=== PATIENT | male | born 1995 | race Caucasian/White ===

== ENCOUNTER 2024-01-06 14:45 | Inpatient (IN) | payer OTHER, MEDICAID ==
[~2024-01-06] VITALS: Ht 149.9 cm; Wt 87.2 kg
[2024-01-06] MEDS ORDERED: IPRATROPIUM/ALBUTEROL SULFATE 3 ML AMPUL.NEB (DUONEB) ONE (14:56)
[2024-01-06] MEDS: IPRATROPIUM/ALBUTEROL SULFATE 3 ML AMPUL.NEB (DUONEB) INH ONE (15:10)
[2024-01-06 15:15] VITALS: BP_SYST 152; PULSE 112; RESP 25; TEMP 99.3; O2SAT 95
[2024-01-06 15:27] LABS: BASOPHILS # (AUTO) 0.1 K/uL (0.0-0.2); BASOPHILS % (AUTO) 0.7 % (0.0-2.0); EOSINOPHILS % (AUTO) 0.2 % (0.0-4.0); HEMOGLOBIN 14.2 g/dL (14.0-18.0); LYMPHOCYTES # (AUTO) 0.8 K/uL (1.0-5.5); LYMPHOCYTES % (AUTO) 8.7 % (20.5-51.5); MEAN CORPUSCULAR HEMOGLOBIN 32 pg (27-31); MEAN CORPUSCULAR HGB CONC 35 % (32-36); MEAN CORPUSCULAR VOLUME 92 fL (79.0-98.0); MONOCYTES # (AUTO) 0.6 K/uL (0.0-1.0); MONOCYTES % (AUTO) 6.3 % (1.7-9.3); NEUTROPHILS # (AUTO) 7.4 K/uL (1.8-7.7); NEUTROPHILS % (AUTO) 84.1 % (40.0-70.0); PLATELET COUNT (AUTO) 185 K/uL (130-430); RED BLOOD CELL COUNT(AUTO) 4.47 MIL/uL (4.2-6.2); RED CELL DISTRIBUTION WIDTH 14.3 % (9.0-15.0); WHITE BLOOD COUNT (AUTO) 8.8 K/uL (4.8-10.8)
[2024-01-06] MEDS ORDERED: PIPERACILLIN/TAZOBACTAM 3.375 GM/VIAL (ZOSYN) IV ONE (15:37)
[2024-01-06] MEDS: PIPERACILLIN/TAZO 3.375 GM in D5W 50 ML IV ONE (15:41)
[2024-01-06] MEDS: methylPREDNISolone SOD SUCC/PF 62.5 MG/ML VIAL IVP ONE (15:41)
[2024-01-06 16:02] LABS: PROTHROMBIN TIME 10.8 SECS (9.5-12.5)
[2024-01-06 16:06] LABS: ALANINE AMINOTRANSFERASE 48 U/L (12-78); ALBUMIN 3.4 g/dL (3.4-4.8); ANION GAP 6 (5-15); ASPARTATE AMINOTRANSFERASE 21 U/L (10-37); BILIRUBIN,DIRECT 0.1 mg/dL (0.0-0.3); CARBON DIOXIDE 29 mmol/L (23-29); CHLORIDE 102 mmol/L (98-107); CREATININE 1.05 mg/dL (0.55-1.30); GFR AFRICAN AMERICAN 107 mL/min (>90); GLUCOSE 180 mg/dL (74-106); POTASSIUM 4.5 mmol/L (3.5-5.1); SODIUM SERUM 137 mmol/L (136-145); TOTAL BILIRUBIN 0.4 mg/dL (0.0-1.0); TOTAL PROTEIN, SERUM 7.4 g/dL (6.4-8.3); UREA NITROGEN, BLOOD 16 mg/dL (8-21)
[2024-01-06 16:10] LABS: GFR NON AFRICAN-AMERICAN 88 mL/min (>90)
[2024-01-06] MEDS ORDERED: AZITHROMYCIN 500 MG/VIAL (ZITHROMAX) IV ONE (17:13)
[2024-01-06] MEDS: AZITHROMYCIN 500 MG in NS 250 ML IV ONE (17:41)
[2024-01-06] MEDS ORDERED: ACETAMINOPHEN 325 MG TABLET PO ONE (17:45)
[2024-01-06] MEDS ORDERED: INSULIN REGULAR, HUMAN 100 UNITS/ML, 3 ML VIAL (humuLIN R) SUBCUT SCH (17:45)
[2024-01-06] MEDS ORDERED: HYDROcodone/ACETAMIN 5-325 MG TAB (NORCO/ VICODIN) PO PRN (17:45)
[2024-01-06] MEDS ORDERED: NACL 0.9% 2,000 ML IV ONE (17:45)
[2024-01-06] MEDS ORDERED: MORPHINE 2 MG/ML INJ. SYRINGE IVP PRN (17:45)
[2024-01-06] MEDS ORDERED: METF-863 PO (17:52)
[2024-01-06] MEDS ORDERED: NITSL SL (17:52)
[2024-01-06] MEDS ORDERED: LEVO100T9 PO (17:52)
[2024-01-06] MEDS ORDERED: ARIP15TA43 PO (17:52)
[2024-01-06] MEDS ORDERED: IBUP-1968 PO (17:52)
[2024-01-06] MEDS ORDERED: FLUO-408 PO (17:52)
[2024-01-06] MEDS ORDERED: PROP10TA10 PO (17:52)
[2024-01-06] MEDS ORDERED: ATOM60CA4 PO (17:52)
[2024-01-06] MEDS ORDERED: ATOR10TA68 PO (17:52)
[2024-01-06] MEDS ORDERED: RISP1TAB PO (17:54)
[2024-01-06] MEDS ORDERED: ACET325T53 PO (17:54)
[2024-01-06] MEDS ORDERED: ONDANSETRON HCL 4 MG/2 ML VIAL IVP PRN (18:00)
[2024-01-06] MEDS ORDERED: [UNRECOGNIZED DRUG - CODE] TP (18:00)
[2024-01-06 18:04] LABS: INFLUENZA TYPE A Negative (NEGATIVE); INFLUENZA TYPE B NEGATIVE (NEGATIVE)
[2024-01-06 18:09] LABS: COVID19 ANTIGEN SOFIA FIA NEGATIVE (NEGATIVE)
[2024-01-06] MEDS ORDERED: ACETAMINOPHEN 325 MG TABLET PO PRN ×2 (18:30)
[2024-01-06 18:44] LABS: BILIRUBIN,URINE NEGATIVE (NEGATIVE); BLOOD, URINE NEGATIVE (NEGATIVE); CLARITY/URINE CLEAR (CLEAR); COLOR,URINE YELLOW (YELLOW); GLUCOSE,URINE NEGATIVE (NEGATIVE); KETONES,URINE NEGATIVE (NEGATIVE); LEUKOCYTE ESTERASE ,URINE NEGATIVE (NEGATIVE); NITRITE, URINE NEGATIVE (NEGATIVE); PROTEIN URINE NEGATIVE (NEGATIVE); UROBILINOGEN,URINE 0.2 (0.2-1.0)
[2024-01-06] MEDS ORDERED: NITROGLYCERIN 0.4 MG TAB.SUBL SL PRN (19:00)
[2024-01-06 23:00] VITALS: O2SAT 96
[2024-01-06] MEDS: KETOROLAC TROMETHAMINE 30 MG VIAL IVP ONE (23:09)
[2024-01-06] MEDS: ARIPiprazole 5 MG TAB PO SCH (23:50)
[2024-01-06] MEDS: ATORVASTATIN 10 MG TABLET PO SCH (23:52)
[2024-01-06] MEDS: PROPRANOLOL HCL 10 MG TABLET (INDERAL) PO SCH (23:57)
[2024-01-07] VITALS (10 sets, daily range): BP systolic 93–124; PULSE 89–92; RESP 16–20; TEMP 97.3–99.1; O2SAT 93–98
[2024-01-07] MEDS: IPRATROPIUM/ALBUTEROL SULFATE 3 ML AMPUL.NEB (DUONEB) INH SCH (06:03)
[2024-01-07] MEDS: LEVOTHYROXINE SODIUM 0.1 MG TABLET PO SCH (07:00)
[2024-01-07] MEDS ORDERED: INSULIN NPH/REGULAR 70-30, 100 UNITS/ML, 3 ML VIAL ONE (08:50)
[2024-01-07] MEDS ORDERED: cefTRIAXone 1 GM VIAL IV ONE (09:00)
[2024-01-07] MEDS: INSULIN REGULAR, HUMAN 100 UNITS/ML, 3 ML VIAL (humuLIN R) SUBCUT PRN (09:03)
[2024-01-07 09:11] LABS: BASOPHILS % (AUTO) 0.2 % (0.0-2.0); HEMATOCRIT 40.9 % (36-54); HEMOGLOBIN 13.6 g/dL (14.0-18.0); LYMPHOCYTES # (AUTO) 0.3 K/uL (1.0-5.5); LYMPHOCYTES % (AUTO) 2.9 % (20.5-51.5); MEAN CORPUSCULAR HEMOGLOBIN 31 pg (27-31); MEAN CORPUSCULAR HGB CONC 33 % (32-36); MEAN CORPUSCULAR VOLUME 93 fL (79.0-98.0); MONOCYTES # (AUTO) 0.1 K/uL (0.0-1.0); MONOCYTES % (AUTO) 0.6 % (1.7-9.3); NEUTROPHILS # (AUTO) 11.6 K/uL (1.8-7.7); NEUTROPHILS % (AUTO) 96.3 % (40.0-70.0); PLATELET COUNT (AUTO) 181 K/uL (130-430); RED BLOOD CELL COUNT(AUTO) 4.38 MIL/uL (4.2-6.2); RED CELL DISTRIBUTION WIDTH 14.1 % (9.0-15.0); WHITE BLOOD COUNT (AUTO) 12.1 K/uL (4.8-10.8)
[2024-01-07 09:34] LABS: ALBUMIN 2.9 g/dL (3.4-4.8); CALCIUM 9.1 mg/dL (8.4-11.0); CREATININE 1.38 mg/dL (0.55-1.30); POTASSIUM 4.6 mmol/L (3.5-5.1); TOTAL BILIRUBIN 0.3 mg/dL (0.0-1.0); TOTAL PROTEIN, SERUM 7.8 g/dL (6.4-8.3)
[2024-01-07] MEDS: risperiDONE 1 MG TABLET (RisperDAL) PO SCH (10:29)
[2024-01-07] MEDS: METHYLPREDNISOLONE SOD SUCC 40 MG/ML VIAL IVP SCH (10:31)
[2024-01-07] MEDS: FLUoxetine HCL 20 MG CAPSULE (PROzac) PO SCH (10:35)
[2024-01-07] MEDS: cefTRIAXone 1 GM in D5W 50 ML IV SCH (10:40)
[2024-01-07] MEDS: AZITHROMYCIN 500 MG in NS 250 ML IV SCH (17:52)
[2024-01-08] VITALS (10 sets, daily range): BP systolic 101–135; PULSE 75–103; RESP 16–19; TEMP 97.8–98.6; O2SAT 94–98
[2024-01-08] MEDS: INSULIN GLARGINE 100 UNITS/ML, 10 ML VIAL SUBCUT SCH ×2 (09:23→20:17)
[2024-01-09] VITALS: BP_SYST 107; PULSE 70; RESP 20; TEMP 97.3; O2SAT 96
[2024-01-09 07:30] VITALS: O2SAT 98
[2024-01-09 08:00] VITALS: BP_SYST 123; PULSE 99; RESP 20; TEMP 98.1; O2SAT 97
[2024-01-09] MEDS ORDERED: INSU100V9 SUBCUT (09:18)
[2024-01-09] MEDS ORDERED: AUG875 PO (09:18)
[2024-01-09] MEDS ORDERED: INSU100V7 SUBCUT (09:18)
[2024-01-09 12:12] VITALS: BP_SYST 109; PULSE 97; RESP 16; TEMP 97.9; O2SAT 96
[2024-01-09 12:13] VITALS: BP_SYST 112; PULSE 99; RESP 18; TEMP 97.8; O2SAT 98
[2024-01-09] MEDS ORDERED: AMOXICILLIN/POTASSIUM CLAV 875 MG TABLET PO SCH (21:00)
== END 2024-01-09 13:35 | disposition home or self-care (01) | DRG 871 ==
LOC: SED 14:45 → STU 18:02 → SMU 01-09 05:11
PROVIDERS: ADMIT Internal Medicine; ATTEND Internal Medicine
DX: A41.9 Sepsis, unspecified organism (principal); J15.69 Pneumonia due to other Gram-negative bacteria; J96.01 Acute respiratory failure with hypoxia; J69.0 Pneumonitis due to inhalation of food and vomit; J15.9 Unspecified bacterial pneumonia; Q90.9 Down syndrome, unspecified; E78.5 Hyperlipidemia, unspecified; E11.9 Type 2 diabetes mellitus without complications; Z20.822 Contact with and (suspected) exposure to COVID-19; J45.909 Unspecified asthma, uncomplicated; J03.90 Acute tonsillitis, unspecified; E03.9 Hypothyroidism, unspecified; Z79.899 Other long term (current) drug therapy; Z79.84 Long term (current) use of oral hypoglycemic drugs
CPT/HCPCS: 36415; 70490; 71045; 80048; 80053; 80076; 81001; 81003; 82948; 83605; 84484; 85025; 85610; 85730; 87040; 87086; 93005; 94070; 94640; 94760; 96365; 99291; G0378; J0456; J0696; J1030; J1815; J2543; J2930; J7050; J7060